=== PATIENT | male | born 1980 | race Caucasian/White ===

== ENCOUNTER 2022-11-28 17:03 | Emergency (ER) | payer MEDICAID, SELFPAY ==
[2022-11-28 17:08] VITALS: BP 138/89; BP 140/80; PULSE 101; PULSE 89; RESP 16; TEMP 36.9; O2SAT 98; O2SAT 99; BMI 20.6
--- NOTE | 2022-11-28 17:20 | MHC.RECOVSUP ---
? Reason for consult Recovery Support o Current location: ED[facility] o Identified substance use concern: PCP - Seeking ATS (detox) - Support ? Intervention: <del>o</del> <del>ATS</del> <del>bed</del> <del>search</del> <del>started/completed/in</del> <del>process</del> <del>o</del> <del>MAT</del> <del>started</del> <del>or</del> <del>to</del> <del>be</del> <del>started</del> <del>o</del> <del>Community</del> <del>resources</del> <del>provided</del> <del>o</del> <del>Harm</del> <del>reduction</del> <del>discussion</del> ? Plan: o Referral to [facility] o Bed search in progress to o Follow up tomorrow o Patient awaiting crisis evaluation o Patient to follow up with [facility] after discharge ? Additional information: I called [facility] and i was informed that He was there but went to the parking lot and smoked PCP.. Debbie joy stated that he would need to be cleared before coming back..
--- NOTE | 2022-11-28 17:22 | ED_ITS ---
HPI - General Adult General Chief complaint: General Medical Stated complaint: SEEKING DETOX,SENT FROM [facility] Time Seen by Provider: 11/28/22 17:12 Source: patient Mode of arrival: ambulatory Limitations: other (Patient appears to be under the influence of drugs) History of Present Illness HPI narrative: 42-year-old male presents from parking lot at [facility] where he was found smoking PCP according to patient he wanted to check in to [facility] for detox he wants to do this for his however, due to intoxication they did not admit him to [facility] up. Reports polysubstance abuse including PCP and cocaine. Denies suicidal homicidal ideation. Denies visual, auditory and tactile hallucinations. Denies medical complaints. Related Data Allergies Allergy/AdvReac Type Severity Reaction Status Date / Time Unable to Assess Allergy Unverified 11/28/22 17:20 Review of Systems Review of Systems: Constitutional : No Fever, No Chills ENT/Mouth : No sore throat, No Rhinorrhea Eyes: No Eye Pain, No Swelling, No Redness Cardiovascular : No Chest Pain, No SOB Respiratory : No Cough, No Sputum Gastrointestinal : No Nausea, No Vomiting, No Diarrhea, No abdominal Pain Genitourinary : No Dysuria, No Hematuria Musculoskeletal : No joint pain, No Myalgias, No Joint Swelling Skin : No Skin Lesions, No rash Neuro : No Weakness, No Numbness Psych : No Anxiety, No Depression, No SI/HI/AH/VH Heme/Lymph: No Bruising, No Bleeding Endocrine : No Polyuria, No Polydipsia All other systems reviewed and are negative Yes all other systems are reviewed and are negative [facility] Past Medical History Attestation statement: The following information was validated with the patient. Source: old records reviewed and nursing notes reviewed Social History Social History Advance Directives: No Advance Directives Information Provided: No Physical Exam ED Vital Signs: Vital Signs - 24 hr 11/28/22 17:08 Temperature 98.4 F Pulse Rate 101 H Respiratory Rate 16 Blood Pressure 138/89 Pulse Oximetry 98 Oxygen Delivery Method Room Air BMI result Body Mass Index 20.6 vss Appearance: Alert.? Oriented X3.? No acute distress.? Head: Normocephalic, atraumatic, no step-offs or deformities Eyes: Pupils equal, round and reactive to light.? Neck: Normal inspection.? Neck supple.? CVS: Normal heart rate and rhythm.? Pulses normal.? Respiratory: No respiratory distress.? Breath sounds normal.? Abdomen: Soft and nontender.? Skin: Skin warm and dry.? Normal skin color.? Normal skin turgor.? Extremities: No lower extremity edema.? No calf ttp. 5/5 strength to bilateral upper and lower extremities Neuro: Oriented X 3.? No motor deficit.? No sensory deficit. CN 2-12 intact Course Reevaluation(s) Reevaluation #1: Patient telling me he is feeling anxious, will give him Haldol, Benadryl and lorazepam to help him calmed down. Will also given nicotine patch per patient request. Time: 17:37 Reevaluation #2: Patient became anxious, and according to nursing he eloped from the department before they were able to medicate him. Patient was not suicidal or homicidal he was alert and oriented x4 ambulatory with steady gait. Time: 18:00 Medical Decision Making Medical Decision Making [facility] Narrative: [id number] This is a 42-year-old male presenting seeking detox he went to [facility] requesting detox however was intoxicated was found smoking PCP in the parking lot Physical examination benign. Patient is likely under the influence of drugs and/or alcohol. Denies SI and HI. Unlikely metabolic disturbances. Plan medical clearance and evaluation by academic coach Differential Diagnosis Differential Diagnoses: The differential diagnosis associated with the presentation includes Patient is likely under the influence of drugs and/or alcohol. Denies SI and HI. Unlikely metabolic disturbances. Admission/Observation Consideration of admission/observation: Escalation of care including admission/observation considered Unlikely Core Measures AMI core measures followed: Yes Measure exclusions: not indicated Critical Care Time Critical Care Time Critical Care Time: No Discharge Plan Discharge Clinical Impression: Polysubstance abuse Patient Disposition: Elopement Instructions: Polysubstance Abuse (ED)
== END 2022-11-28 18:19 | disposition left against medical advice (07) ==
PROVIDERS: Emergency Provider Emergency Medicine
DX: F19.10 Other psychoactive substance abuse, uncomplicated (principal); F41.9 Anxiety disorder, unspecified
CPT/HCPCS: 99281

== ENCOUNTER 2022-11-28 18:31 | Emergency (ER) | payer MEDICAID, SELFPAY ==
[2022-11-28 18:51] VITALS: PULSE 97; RESP 18; TEMP 36.6; O2SAT 99; BMI 23.0
--- NOTE | 2022-11-28 18:54 | ED_ITS ---
HPI - General Adult General Chief complaint: Psychiatric Symptoms <SAMIR Nazario Last Filed: 11/28/22 18:57> Stated complaint: crisis eval <SAMIR Nazario Last Filed: 11/28/22 18:57> Time Seen by Provider: 11/28/22 19:23 <SAMIR Nazario Last Filed: 11/28/22 18:57> Source: patient <SAMIR Ernst Last Filed: 11/28/22 20:22> Mode of arrival: ambulatory <SAMIR Ernst Last Filed: 11/28/22 20:22> Limitations: no limitations <SAMIR Ernst Last Filed: 11/28/22 20:22> History of Present Illness HPI narrative: 42-year-old male presents s/p eloping from this ED about an hour ago, initially he came from parking lot at [facility] where he was found smoking PCP according to patient he wanted to check in to [facility] for detox he wants to do this for his however, due to intoxication they did not admit him to [facility] up.? Reports polysubstance abuse including PCP and cocaine.? Denies suicidal homicidal ideation.? Denies visual, auditory and tactile hallucinations.? Denies medical complaints. Patient tells me he initially eloped to smoke for a while and breath. <SAMIR Ernst Last Filed: 11/28/22 20:22> Related Data Allergies/adverse reactions: Allergies Allergy/AdvReac Type Severity Reaction Status Date / Time Unable to Assess Allergy Unverified 11/28/22 17:20 <SAMIR Nazario Last Filed: 11/28/22 18:57> Review of Systems Review of Systems: Constitutional : No Fever, No Chills ENT/Mouth : No sore throat, No Rhinorrhea Eyes: No Eye Pain, No Swelling, No Redness Cardiovascular : No Chest Pain, No SOB Respiratory : No Cough, No Sputum Gastrointestinal : No Nausea, No Vomiting, No Diarrhea, No abdominal Pain Genitourinary : No Dysuria, No Hematuria Musculoskeletal : No joint pain, No Myalgias, No Joint Swelling Skin : No Skin Lesions, No rash Neuro : No Weakness, No Numbness Psych : No Anxiety, No Depression, No SI/HI/AH/VH Heme/Lymph: No Bruising, No Bleeding Endocrine : No Polyuria, No Polydipsia <SAMIR Ernst - Last Filed: 11/28/22 20:22> Yes all other systems are reviewed and are negative <SAMIR Ernst - Last Filed: 11/28/22 20:22> [facility] Past Medical History Attestation statement: The following information was validated with the patient. <SAMIR rEnst - Last Filed: 11/28/22 20:22> Source: old records reviewed and nursing notes reviewed <SMAIR Ernst - Last Filed: 11/28/22 20:22> Social History Social History: Social History Advance Directives: No Advance Directives Information Provided: No <SAMIR Nazario - Last Filed: 11/28/22 18:57> Physical Exam ED Vital Signs: Vital Signs - 24 hr 11/28/22 18:51 11/28/22 19:49 Temperature 98 F 97.4 F Pulse Rate 97 95 Respiratory Rate 18 18 Blood Pressure 176/92 H Pulse Oximetry 99 96 Oxygen Delivery Method Room Air Room Air BMI result Body Mass Index 23.0 <SAMIR Nazario - Last Filed: 11/28/22 18:57> Vital Signs - 24 hr 11/28/22 18:51 11/28/22 19:49 Temperature 98 F 97.4 F Pulse Rate 97 95 Respiratory Rate 18 18 Blood Pressure 176/92 H Pulse Oximetry 99 96 Oxygen Delivery Method Room Air Room Air BMI result Body Mass Index 23.0 vss <SAMIR Ernst - Last Filed: 11/28/22 20:22> Appearance: Alert.? Oriented X3.? No acute distress.? Head: Normocephalic, atraumatic, no step-offs or deformities Eyes: Pupils equal, round and reactive to light.? Neck: Normal inspection.? Neck supple.? CVS: Normal heart rate and rhythm.? Pulses normal.? Respiratory: No respiratory distress.? Breath sounds normal.? Abdomen: Soft and nontender.? Skin: Skin warm and dry.? Normal skin color.? Normal skin turgor.? Extremities: No lower extremity edema.? No calf ttp. 5/5 strength to bilateral upper and lower extremities Neuro: Oriented X 3.? No motor deficit.? No sensory deficit. CN 2-12 intact <SAMIR Ernst - Last Filed: 11/28/22 20:22> Course Course Course Narrative: RME - 42 yo male with history of polysubstance abuse (cocaine, PCP and ETOH) who presents to the ER from the parking lot for detox. Wants to go to [facility]. Just left from [facility]H to go smoke a cigarette. Rapping and talking nonsense in triage. Plan: labs and asset recovery specialist, medicate with PO benadryl, haldol and ativan <SAMIR Nazario - Last Filed: 11/28/22 18:57> Reevaluation(s) Reevaluation #1: Patient did request p.o. medication therefore he received Haldol, Ativan and Benadryl. Also requesting nicotine patch. <SAMIR Ernst - Last Filed: 11/28/22 20:22> Time: 20:01 <SAMIR Ernst - Last Filed: 11/28/22 20:22> Reevaluation #2: CBC unremarkable. Chemistry with no acute findings requiring intervention. UA without infection. UA positive for PCP, cocaine and marijuana. Negative ethanol. COVID negative. Patient comfortably resting at this time. Will be placed into observation to allow more time to be evaluated by asset recovery specialist versus care team. <SAMIR Ernst - Last Filed: 11/28/22 20:22> Time: 20:20 <SAMIR Ernst Last Filed: 11/28/22 20:22> Medications Administered Discontinued Medications Generic Name Dose Route Start Last Admin Trade Name Freq PRN Reason Stop Dose Admin Diphenhydramine HCl 50 mg 11/28/22 18:55 11/28/22 19:26 Diphenhydramine Hcl 25 Mg Capsule PO 11/28/22 18:56 50 mg ONCE ONE Administration Haloperidol 5 mg 11/28/22 18:55 11/28/22 19:27 Haloperidol 5 Mg Tablet PO 11/28/22 18:56 5 mg ONCE ONE Administration Lorazepam 2 mg 11/28/22 18:55 11/28/22 19:26 Lorazepam 1 Mg Tablet PO 11/28/22 18:56 2 mg ONCE ONE Administration <SAMIR Nazario - Last Filed: 11/28/22 18:57> Medications Administered Discontinued Medications Generic Name Dose Route Start Last Admin Trade Name Brianna PRN Reason Stop Dose Admin Diphenhydramine HCl 50 mg 11/28/22 18:55 11/28/22 19:26 Diphenhydramine Hcl 25 Mg Capsule PO 11/28/22 18:56 50 mg ONCE ONE Administration Haloperidol 5 mg 11/28/22 18:55 11/28/22 19:27 Haloperidol 5 Mg Tablet PO 11/28/22 18:56 5 mg ONCE ONE Administration Lorazepam 2 mg 11/28/22 18:55 11/28/22 19:26 Lorazepam 1 Mg Tablet PO 11/28/22 18:56 2 mg ONCE ONE Administration <SAMIR Ernst - Last Filed: 11/28/22 20:22> Medical Decision Making Medical Decision Making [facility] Narrative: 1944 This is a 42-year-old male presenting seeking detox he went to [facility] requesting detox however was intoxicated was found smoking PCP in the parking lot. He was here about an hour ago however eloped and signed back in Physical examination benign. Patient is likely under the influence of drugs and/or alcohol.? Denies SI and HI.? Unlikely metabolic disturbances. Plan medical clearance and evaluation by asset recovery specialist <SAMIR Ernst - Last Filed: 11/28/22 20:22> Differential Diagnosis Differential Diagnoses: The differential diagnosis associated with the presentation includes <SAMIR Ernst Last Filed: 11/28/22 20:22> Patient is likely under the influence of drugs and/or alcohol.? Denies SI and HI.? Unlikely metabolic disturbances. <SAMIR Ernst Last Filed: 11/28/22 20:22> Admission/Observation Consideration of admission/observation: Escalation of care including admission/observation considered <SAMIR Ernst Last Filed: 11/28/22 20:22> Lab Data MDM Lab Attestation statement: I reviewed the patient's lab results. <SAMIR Ernst - Last Filed: 11/28/22 20:22> Result Diagrams: 11/28/22 19:07 11/28/22 19:07 <SAMIR Nazario - Last Filed: 11/28/22 18:57> Labs: Lab Results 11/28/22 11/28/22 11/28/22 Range/Units 19:07 19:07 19:07 WBC 9.4 (4.8-10.8) X10*3/uL RBC 4.48 L (4.60-5.80) X10*6/uL Hgb 13.0 L (14.0-18.0) g/dl Hct 40.2 L (42.0-52.0) % MCV 89.7 (80.0-98.0) fL MCH 29.0 (27.0-33.0) pg MCHC 32.3 (31.0-36.0) g/dl RDW 13.2 (11.0-16.0) % Plt Count 391 (160-400) X10*3/uL MPV 8.9 L (9.4-12.4) fL Immature Gran % (Auto) 0.3 (0.0-0.4) % Neut % (Auto) 61.2 (45-73) % Lymph % (Auto) 27.7 (20-40) % [place] % (Auto) 7.8 (2-11) % Eos % (Auto) 2.7 (0-4) % Baso % (Auto) 0.3 (0-2) % Lymph # (Auto) 2.6 (1.2-4.9) X10*3/uL [place] # (Auto) 0.7 (0.1-1.2) X10*3/uL Eos # (Auto) 0.3 (0.0-0.4) X10*3/uL Baso # (Auto) 0.0 (0.0-0.2) X10*3/uL Abs Immat Gran (auto) 0.03 (0.00-0.03) X10*3/uL Absolute Neuts (auto) 5.8 (2.0-8.3) x10*3/uL Absolute Nucleated RBC 0.000 (0.0-0.012) X10*3/uL Nucleated RBC % (auto) 0.0 (0.0-0.2) /100WBC Sodium 144 (135-145) mmol/L Potassium 4.4 (3.3-5.1) mmol/L Chloride 110 H (96-108) mmol/L Carbon Dioxide 26 (22-29) mmol/L Anion Gap 12 (12-20) BUN 20 H (9-16) mg/dL Creatinine 0.87 (0.5-1.4) mg/dL Estim Creat Clear Calc 121.8 Estimated GFR > 60 Random Glucose 81 (60-115) mg/dL Calcium 9.0 (8.4-10.2) mg/dL Magnesium 2.0 (1.6-2.6) mg/dL Total Bilirubin 0.3 (0.0-1.0) mg/dL Direct Bilirubin < 0.2 (0.0-0.5) mg/dL AST 29 (5-37) U/L ALT 23 (0-40) U/L Alkaline Phosphatase 87 (39-117) U/L Total Protein 6.9 (6.5-8.0) g/dL Albumin 4.0 (3.5-5.0) g/dL Urine Color Urine Appearance Urine pH (5.0-9.0) Ur Specific [place] (1.005-1.025) Urine Protein (Neg-Trace) mg/dL Urine Glucose (UA) (Negative) mg/dL Urine Ketones (Negative) mg/dL Urine Blood (Negative) Urine Nitrite (Negative) Ur Leukocyte Esterase (Negative) Urine Opiates Screen (Not Detect) Urine Fentanyl Screen (Not Detect) Ur Barbiturates Screen (Not Detect) Ur Phencyclidine Scrn (Not Detect) Ur Amphetamines Screen (Not Detect) U Benzodiazepines Scrn (Not Detect) Urine Cocaine Screen (Not Detect) U Marijuana (THC) Screen (Not Detect) Ethyl Alcohol mg/dL COVID-19 ([place]) Negative (Negative) COVID-19 Clin Com See Note 11/28/22 11/28/22 11/28/22 Range/Units 19:07 19:48 19:50 WBC (4.8-10.8) X10*3/uL RBC (4.60-5.80) X10*6/uL Hgb (14.0-18.0) g/dl Hct (42.0-52.0) % MCV (80.0-98.0) fL MCH (27.0-33.0) pg MCHC (31.0-36.0) g/dl RDW (11.0-16.0) % Plt Count (160-400) X10*3/uL MPV (9.4-12.4) fL Immature Gran % (Auto) (0.0-0.4) % Neut % (Auto) (45-73) % Lymph % (Auto) (20-40) % [place] % (Auto) (2-11) % Eos % (Auto) (0-4) % Baso % (Auto) (0-2) % Lymph # (Auto) (1.2-4.9) X10*3/uL [place] # (Auto) (0.1-1.2) X10*3/uL Eos # (Auto) (0.0-0.4) X10*3/uL Baso # (Auto) (0.0-0.2) X10*3/uL Abs Immat Gran (auto) (0.00-0.03) X10*3/uL Absolute Neuts (auto) (2.0-8.3) x10*3/uL Absolute Nucleated RBC (0.0-0.012) X10*3/uL Nucleated RBC % (auto) (0.0-0.2) /100WBC Sodium (135-145) mmol/L Potassium (3.3-5.1) mmol/L Chloride (96-108) mmol/L Carbon Dioxide (22-29) mmol/L Anion Gap (12-20) BUN (9-16) mg/dL Creatinine (0.5-1.4) mg/dL Estim Creat Clear Calc Estimated GFR Random Glucose (60-115) mg/dL Calcium (8.4-10.2) mg/dL Magnesium (1.6-2.6) mg/dL Total Bilirubin (0.0-1.0) mg/dL Direct Bilirubin (0.0-0.5) mg/dL AST (5-37) U/L ALT (0-40) U/L Alkaline Phosphatase (39-117) U/L Total Protein (6.5-8.0) g/dL Albumin (3.5-5.0) g/dL Urine Color Yellow Urine Appearance Clear Urine pH 7.0 (5.0-9.0) Ur Specific [place] 1.025 (1.005-1.025) Urine Protein Negative (Neg-Trace) mg/dL Urine Glucose (UA) Negative (Negative) mg/dL Urine Ketones Negative (Negative) mg/dL Urine Blood Negative (Negative) Urine Nitrite Negative (Negative) Ur Leukocyte Esterase Negative (Negative) Urine Opiates Screen Not Detected (Not Detect) Urine Fentanyl Screen Not Detected (Not Detect) Ur Barbiturates Screen Not Detected (Not Detect) Ur Phencyclidine Scrn POSITIVE H (Not Detect) Ur Amphetamines Screen Not Detected (Not Detect) U Benzodiazepines Scrn Not Detected (Not Detect) Urine Cocaine Screen POSITIVE H (Not Detect) U Marijuana (THC) Screen POSITIVE H (Not Detect) Ethyl Alcohol < 10 mg/dL COVID-19 ([place]) (Negative) COVID-19 Clin Com <SAMIR Nazario - Last Filed: 11/28/22 18:57> Lab Results 11/28/22 11/28/22 11/28/22 Range/Units 19:07 19:07 19:07 WBC 9.4 (4.8-10.8) X10*3/uL RBC 4.48 L (4.60-5.80) X10*6/uL Hgb 13.0 L (14.0-18.0) g/dl Hct 40.2 L (42.0-52.0) % MCV 89.7 (80.0-98.0) fL MCH 29.0 (27.0-33.0) pg MCHC 32.3 (31.0-36.0) g/dl RDW 13.2 (11.0-16.0) % Plt Count 391 (160-400) X10*3/uL MPV 8.9 L (9.4-12.4) fL Immature Gran % (Auto) 0.3 (0.0-0.4) % Neut % (Auto) 61.2 (45-73) % Lymph % (Auto) 27.7 (20-40) % [place] % (Auto) 7.8 (2-11) % Eos % (Auto) 2.7 (0-4) % Baso % (Auto) 0.3 (0-2) % Lymph # (Auto) 2.6 (1.2-4.9) X10*3/uL [place] # (Auto) 0.7 (0.1-1.2) X10*3/uL Eos # (Auto) 0.3 (0.0-0.4) X10*3/uL Baso # (Auto) 0.0 (0.0-0.2) X10*3/uL Abs Immat Gran (auto) 0.03 (0.00-0.03) X10*3/uL Absolute Neuts (auto) 5.8 (2.0-8.3) x10*3/uL Absolute Nucleated RBC 0.000 (0.0-0.012) X10*3/uL Nucleated RBC % (auto) 0.0 (0.0-0.2) /100WBC Sodium 144 (135-145) mmol/L Potassium 4.4 (3.3-5.1) mmol/L Chloride 110 H (96-108) mmol/L Carbon Dioxide 26 (22-29) mmol/L Anion Gap 12 (12-20) BUN 20 H (9-16) mg/dL Creatinine 0.87 (0.5-1.4) mg/dL Estim Creat Clear Calc 121.8 Estimated GFR > 60 Random Glucose 81 (60-115) mg/dL Calcium 9.0 (8.4-10.2) mg/dL Magnesium 2.0 (1.6-2.6) mg/dL Total Bilirubin 0.3 (0.0-1.0) mg/dL Direct Bilirubin < 0.2 (0.0-0.5) mg/dL AST 29 (5-37) U/L ALT 23 (0-40) U/L Alkaline Phosphatase 87 (39-117) U/L Total Protein 6.9 (6.5-8.0) g/dL Albumin 4.0 (3.5-5.0) g/dL Urine Color Urine Appearance Urine pH (5.0-9.0) Ur Specific [place] (1.005-1.025) Urine Protein (Neg-Trace) mg/dL Urine Glucose (UA) (Negative) mg/dL Urine Ketones (Negative) mg/dL Urine Blood (Negative) Urine Nitrite (Negative) Ur Leukocyte Esterase (Negative) Urine Opiates Screen (Not Detect) Urine Fentanyl Screen (Not Detect) Ur Barbiturates Screen (Not Detect) Ur Phencyclidine Scrn (Not Detect) Ur Amphetamines Screen (Not Detect) U Benzodiazepines Scrn (Not Detect) Urine Cocaine Screen (Not Detect) U Marijuana (THC) Screen (Not Detect) Ethyl Alcohol mg/dL COVID-19 ([place]) Negative (Negative) COVID-19 Clin Com See Note 11/28/22 11/28/22 11/28/22 Range/Units 19:07 19:48 19:50 WBC (4.8-10.8) X10*3/uL RBC (4.60-5.80) X10*6/uL Hgb (14.0-18.0) g/dl Hct (42.0-52.0) % MCV (80.0-98.0) fL MCH (27.0-33.0) pg MCHC (31.0-36.0) g/dl RDW (11.0-16.0) % Plt Count (160-400) X10*3/uL MPV (9.4-12.4) fL Immature Gran % (Auto) (0.0-0.4) % Neut % (Auto) (45-73) % Lymph % (Auto) (20-40) % [place] % (Auto) (2-11) % Eos % (Auto) (0-4) % Baso % (Auto) (0-2) % Lymph # (Auto) (1.2-4.9) X10*3/uL [place] # (Auto) (0.1-1.2) X10*3/uL Eos # (Auto) (0.0-0.4) X10*3/uL Baso # (Auto) (0.0-0.2) X10*3/uL Abs Immat Gran (auto) (0.00-0.03) X10*3/uL Absolute Neuts (auto) (2.0-8.3) x10*3/uL Absolute Nucleated RBC (0.0-0.012) X10*3/uL Nucleated RBC % (auto) (0.0-0.2) /100WBC Sodium (135-145) mmol/L Potassium (3.3-5.1) mmol/L Chloride (96-108) mmol/L Carbon Dioxide (22-29) mmol/L Anion Gap (12-20) BUN (9-16) mg/dL Creatinine (0.5-1.4) mg/dL Estim Creat Clear Calc Estimated GFR Random Glucose (60-115) mg/dL Calcium (8.4-10.2) mg/dL Magnesium (1.6-2.6) mg/dL Total Bilirubin (0.0-1.0) mg/dL Direct Bilirubin (0.0-0.5) mg/dL AST (5-37) U/L ALT (0-40) U/L Alkaline Phosphatase (39-117) U/L Total Protein (6.5-8.0) g/dL Albumin (3.5-5.0) g/dL Urine Color Yellow Urine Appearance Clear Urine pH 7.0 (5.0-9.0) Ur Specific [place] 1.025 (1.005-1.025) Urine Protein Negative (Neg-Trace) mg/dL Urine Glucose (UA) Negative (Negative) mg/dL Urine Ketones Negative (Negative) mg/dL Urine Blood Negative (Negative) Urine Nitrite Negative (Negative) Ur Leukocyte Esterase Negative (Negative) Urine Opiates Screen Not Detected (Not Detect) Urine Fentanyl Screen Not Detected (Not Detect) Ur Barbiturates Screen Not Detected (Not Detect) Ur Phencyclidine Scrn POSITIVE H (Not Detect) Ur Amphetamines Screen Not Detected (Not Detect) U Benzodiazepines Scrn Not Detected (Not Detect) Urine Cocaine Screen POSITIVE H (Not Detect) U Marijuana (THC) Screen POSITIVE H (Not Detect) Ethyl Alcohol < 10 mg/dL COVID-19 ([place]) (Negative) COVID-19 Clin Com <SAMIR Ernst - Last Filed: 11/28/22 20:22> Core Measures AMI core measures followed: Yes <SAMIR Ernst - Last Filed: 11/28/22 20:22> Measure exclusions: not indicated <SAMIR Ernst Last Filed: 11/28/22 20:22> Critical Care Time Critical Care Time Critical Care Time: No <SAMIR Ernst - Last Filed: 11/28/22 20:22> Discharge Plan Discharge Clinical Impression: Polysubstance abuse, Acute anxiety <SAMIR Nazario - Last Filed: 11/28/22 18:57> Patient Disposition: Still a Patient <SAMIR Nazario - Last Filed: 11/28/22 18:57>
[2022-11-28 19:14] LABS: MANUAL DIFF FLAG NO
[2022-11-28 19:15] LABS: Basophils Percent Auto 0.3 % (0-2); Eosinophils Absolute Auto 0.3 X10*3/uL (0.0-0.4); Eosinophils Percent Auto 2.7 % (0-4); Hematocrit 40.2 % (42.0-52.0); Imm Gran Abs Auto 0.03 X10*3/uL (0.00-0.03); Imm Gran Pct Auto 0.3 % (0.0-0.4); Lymphocytes Absolute Auto 2.6 X10*3/uL (1.2-4.9); Lymphocytes Percent Auto 27.7 % (20-40); Mean Corpuscular HGB Conc 32.3 g/dl (31.0-36.0); Mean Corpuscular Volume 89.7 fL (80.0-98.0); Mean Platelet Volume 8.9 fL (9.4-12.4); Monocytes Absolute Auto 0.7 X10*3/uL (0.1-1.2); Monocytes Percent Auto 7.8 % (2-11); Neutrophils Absolute Auto 5.8 x10*3/uL (2.0-8.3); Neutrophils Percent Auto 61.2 % (45-73); Platelet Count 391 X10*3/uL (160-400); Red Blood Count 4.48 X10*6/uL (4.60-5.80); Red Cell Distribution Width 13.2 % (11.0-16.0); White Blood Count 9.4 X10*3/uL (4.8-10.8)
[2022-11-28] MEDS: diphenhydrAMINE HCL 25 MG CAPSULE 50 MG PO (19:26)
[2022-11-28] MEDS: LORazepam 1 MG TABLET 2 MG PO (19:26)
[2022-11-28 19:27] LABS: COVID-19 Test Negative (Negative); IDNOW Serial# BCCEAD1C
[2022-11-28] MEDS: HaloperidoL 5 MG TABLET PO (19:27)
[2022-11-28 19:38] LABS: Ethanol < 10 mg/dL
--- NOTE | 2022-11-28 19:38 | PC.NURSE ---
pt was being verbal in the waiting room after leaving and coming back. pt medicated with po meds. rn made aware, seat cover maker with security. urine collected.
[2022-11-28 19:40] LABS: Alanine Aminotransferase 23 U/L (0-40); Alkaline Phosphatase 87 U/L (39-117); Anion Gap 12 (12-20); Aspartate Amino Transferase 29 U/L (5-37); Bilirubin Direct < 0.2 mg/dL (0.0-0.5); Bilirubin Total 0.3 mg/dL (0.0-1.0); Blood Urea Nitrogen 20 mg/dL (9-16); Carbon Dioxide 26 mmol/L (22-29); Chloride 110 mmol/L (96-108); Creatinine Clr Calc Pharmacy 121.8; Estimated Glomerular Filt Rate > 60; Glucose Random 81 mg/dL (60-115); Potassium 4.4 mmol/L (3.3-5.1); Sodium 144 mmol/L (135-145); Total Protein 6.9 g/dL (6.5-8.0)
--- NOTE | 2022-11-28 19:44 | PC.NURSE ---
pt has been medicated at 1926 with po benadryl, haldol, and ativan po voluntary.
--- NOTE | 2022-11-28 19:45 | PC.NURSE ---
pt requesting a smoking patch and provider made aware.
[2022-11-28 19:49] VITALS: BP 176/92; PULSE 95; RESP 18; TEMP 36.3; O2SAT 96
[2022-11-28 19:58] LABS: Appearance Urine Clear; Color Urine Yellow; Glucose Urine UA Negative (Negative); Leukocyte Esterase Urine Negative (Negative); Nitrite Urine Negative (Negative); Specific Gravity - Urine 1.025 (1.005-1.025); Urine Blood Negative (Negative); Urine Ketones Negative (Negative); Urine Protein Negative (Neg-Trace)
[2022-11-28 20:10] LABS: Amphetamine Screen Urine Not Detected (Not Detect); Barbiturates, Urine Not Detected (Not Detect); Benzodiazepines Screen Urine Not Detected (Not Detect); Cannabinoid Screen Urine POSITIVE (Not Detect); Cocaine Screen Urine POSITIVE (Not Detect); Fentanyl, urine Not Detected (Not Detect); Opiate Screen Urine Not Detected (Not Detect); Phencyclidine Screen Urine POSITIVE (Not Detect)
--- NOTE | 2022-11-28 20:37 | MHC.CARE ---
CARE Team attempted to speak to PT attempted to speak to Chuck to initiate detox bedsearch. Pt was medicated and it was not possible.
--- NOTE | 2022-11-28 22:15 | PC.NURSE ---
pt observed sleeping
--- NOTE | 2022-11-29 02:34 | MHC.EDTECH ---
Pt woke up from sleep, began wandering around ED. This residential mortgage underwriter attempted to redirect patient at that time patient began to get agitated. Patient began swearing scurity was called to help redirect patient. Patient then began to be verbally abusive to Security calling them Fucking faggots Telling them you cant take me down with out Fucking weapons . Patient was asking for warm blanket. [place] given, pt then began to get angry again demanding we pay for a taxi for him to get home. This residential mortgage underwriter attempted to explain to patient that there are no taxis at this time of night. Chemo got patients belongs from pod and patient got dressed , I gave patient a Jacket from the locker room. Pt again became agitated was yelling at security again. and Yanira walked patient out to lobby
--- NOTE | 2022-11-29 02:50 | PC.NURSE ---
pt became disprutive, threatening staff, escorted out of the ed
== END 2022-11-29 02:52 | disposition home or self-care (01) ==
PROVIDERS: Physician Assistant; Emergency Provider Emergency Medicine
DX: F19.10 Other psychoactive substance abuse, uncomplicated (principal); F41.9 Anxiety disorder, unspecified; Z20.822 Contact with and (suspected) exposure to COVID-19
CPT/HCPCS: 36415; 80048; 80076; 80307; 81003; 82077; 83735; 85025; 87635; 99283; 99284